=== PATIENT | female | born 1990 | race Caucasian/White ===

== ENCOUNTER 2018-12-19 19:52 | Inpatient (IN) | payer OTHER | END 2018-12-21 13:00 | disposition home or self-care (01) | LOC: LDH 19:52 → WSH 12-20 04:45 | PROC: 10E0XZZ Delivery of Products of Conception, External Approach (ICD-10-PCS; principal; ~2018-12-19) | DX: O80 Encounter for full-term uncomplicated delivery (principal); Z37.0 Single live birth ==

== ENCOUNTER 2020-08-23 06:07 | Inpatient (IN) | payer BC ==
[~2020-08-23] VITALS: Ht 165.1 cm; Wt 87.1 kg
[~2020-08-23 06:07] MED LIST: PREN-94 PO
[2020-08-23] MEDS ORDERED: CEFAZOLIN SODIUM 1 GM VIAL IVP PRN (07:00)
[2020-08-23] MEDS ORDERED: LACTATED RINGERS 1000ML 1,000 ML IV SCH (07:00)
[2020-08-23 07:35] LABS: HEMATOCRIT 34.8 % (36-48); MEAN CORPUSCULAR HEMOGLOBIN 26.4 pg (27.0-33.0); MEAN CORPUSCULAR HGB CONC 31.9 g/dL (32.0-36.0); MEAN CORPUSCULAR VOLUME 82.9 fL (79-99); RED BLOOD CELL COUNT(AUTO) 4.2 MIL/uL (4.00-5.50); RED CELL DISTRIBUTION WIDTH 14.7 % (11.0-15.5); WHITE BLOOD COUNT (AUTO) 9.2 K/uL (4.8-10.8)
[2020-08-23] MEDS ORDERED: METHYLERGONOVINE MALEATE 0.2 MG/1 ML ML ONE (07:36)
[2020-08-23] MEDS ORDERED: PHENYLEPHRINE HCL 10 MG/ML 1ML VIAL IV ONE (09:03)
[2020-08-23] MEDS ORDERED: DEXAMETHASONE SOD PHOSPHATE 10MG/ML 1ML VIAL ONE (09:03)
[2020-08-23] MEDS ORDERED: MORPHINE PF 100MG/10ML AMP IV ONE (09:03)
[2020-08-23] MEDS ORDERED: OXYTOCIN 10 UNIT/1ML 10ML VIAL ONE (09:03)
[2020-08-23] MEDS ORDERED: ONDANSETRON 4MG INJ ONE ×2 (09:03→11:32)
[2020-08-23] MEDS ORDERED: EPHEDRINE SULFATE 50 MG/ML AMPULE ONE (09:03)
[2020-08-23] MEDS ORDERED: CEFAZOLIN SODIUM 1 GM VIAL IVP ONE (09:53)
[2020-08-23] MEDS ORDERED: 0.9%NACL 10ML VIAL IVP PRN (10:45)
[2020-08-23] MEDS ORDERED: OXYTOCIN-LR 20 UNITS/1000 ML 1,000 ML IV PRN (10:45)
[2020-08-23] MEDS ORDERED: PROMETHAZINE HCL 25 MG/ML 1ML AMPULE IM PRN (10:45)
[2020-08-23] MEDS ORDERED: MEPERIDINE-PF 75 MG/ML SYG IM PRN (10:45)
[2020-08-23] MEDS ORDERED: ONDANSETRON 4MG INJ IVP PRN (12:15)
[2020-08-23] MEDS ORDERED: NALOXONE HCL 0.4 MG/1 ML ML IVP PRN ×2 (12:15)
[2020-08-23] MEDS ORDERED: DiphenhydrAMINE HCL 50 MG/ML VIAL IVP PRN (12:15)
[2020-08-23] MEDS ORDERED: EPHEDRINE SULFATE 50 MG/ML AMPULE IVP PRN (12:15)
[2020-08-23 16:10] VITALS: BP 112/57
[2020-08-23] MEDS ORDERED: FLU VACC QS2020-21(6MOS UP)/PF 60 MCG/0.5 ML ML IM ONE (17:00)
[2020-08-23] MEDS ORDERED: DIPH,PERTUSS(ACELL),TET VAC/PF 0.5 ML VIAL IM ONE (17:00)
[2020-08-23] MEDS ORDERED: METOCLOPRAMIDE 10 MG/2 ML VIAL IVP SCH (18:45)
[2020-08-23 20:10] VITALS: BP 96/60
[2020-08-23] MEDS ORDERED: ACETAMINOPHEN WITH CODEINE 1 TAB TAB PO PRN (22:00)
[2020-08-23] MEDS ORDERED: HYDROCODONE/ACETAMINOPHEN 5/325 MG TAB PO PRN (22:00)
[2020-08-23] MEDS ORDERED: BISACODYL 10 MG SUPP.RECT RC PRN (22:00)
[2020-08-23] MEDS ORDERED: LANOLIN 30GM OINTMENT TP PRN (22:00)
[2020-08-23] MEDS: DEXTROSE 5 %-0.45 % NACL 1,000 ML IV PRN (23:02)
[2020-08-23 23:11] VITALS: BP 106/52
[2020-08-24 03:34] VITALS: BP 97/42
[2020-08-24] MEDS: DEXTROSE 5 %-0.45 % NACL 1,000 ML IV PRN (05:51)
[2020-08-24 06:12] LABS: HEPATITIS Bs ANTIGEN SCREEN P Negative (Negative)
[2020-08-24 06:51] LABS: HEMATOCRIT 29.4 % (36-48); MEAN CORPUSCULAR HEMOGLOBIN 26.4 pg (27.0-33.0); MEAN CORPUSCULAR HGB CONC 31.3 g/dL (32.0-36.0); MEAN CORPUSCULAR VOLUME 84.5 fL (79-99); RED BLOOD CELL COUNT(AUTO) 3.48 MIL/uL (4.00-5.50); RED CELL DISTRIBUTION WIDTH 14.5 % (11.0-15.5); WHITE BLOOD COUNT (AUTO) 11.9 K/uL (4.8-10.8)
[2020-08-24 07:20] VITALS: BP 91/62
[2020-08-24] MEDS: DOCUSATE SODIUM 100 MG CAP PO SCH ×2 (09:46→21:50)
[2020-08-24] MEDS: SIMETHICONE 80 MG TAB.CHEW PO PRN ×2 (09:46→21:50)
[2020-08-24] MEDS: ACETAMINOPHEN 500 MG TABLET PO PRN ×2 (09:50→16:31)
[2020-08-24] MEDS: IBUPROFEN 800 MG TAB PO SCH ×2 (11:30→18:48)
[2020-08-24 12:00] VITALS: BP 97/59
[2020-08-24] MEDS ORDERED: DIPH,PERTUSS(ACELL),TET VAC/PF 0.5 ML VIAL IM ONE (16:23)
[2020-08-24] MEDS ORDERED: FLU VACC QS2020-21(6MOS UP)/PF 60 MCG/0.5 ML ML IM ONE (16:24)
[2020-08-24 16:40] VITALS: BP 106/70
[2020-08-24 20:40] VITALS: BP 120/76
[2020-08-24 23:39] VITALS: BP 99/62
[2020-08-25] MEDS: IBUPROFEN 800 MG TAB PO SCH ×2 (02:20→10:14)
[2020-08-25 03:38] VITALS: BP 97/54
[2020-08-25 07:24] VITALS: BP 110/64
[2020-08-25] MEDS: SIMETHICONE 80 MG TAB.CHEW PO PRN (08:20)
[2020-08-25] MEDS: DOCUSATE SODIUM 100 MG CAP PO SCH (08:20)
[2020-08-25 11:35] VITALS: BP 119/71
== END 2020-08-25 12:00 | disposition home or self-care (01) | DRG 788 ==
LOC: LDH 06:07 → WSH 14:54 → PREOBSVTOIN 21:43
PROVIDERS: ADMIT Specialist; ATTEND Specialist
PROC: 10D00Z1 Extraction of Products of Conception, Low, Open Approach (ICD-10-PCS; principal; 2020-08-23 09:45)
DX: O80 Encounter for full-term uncomplicated delivery (principal); Z3A.39 39 weeks gestation of pregnancy; Z37.0 Single live birth; Z20.822 Contact with and (suspected) exposure to COVID-19
CPT/HCPCS: 36415; 59510; 85027; 86850; 86900; 86901; 87340; 90715; A4344; G0378; J0690; J1100; J2210; J2274; J2370; J2405; J2590; J2765; J3490; J7120; Q2035; U0003